=== PATIENT | female | born 1995 | race Hispanic/Latino ===

== ENCOUNTER 2017-08-13 23:56 | Emergency (ER) | payer OTHER ==
[2017-08-14 00:03] VITALS: BP 124/68; TEMP 98; O2SAT 100
[2017-08-14] MEDS ORDERED: DiphenhydrAMINE 50 mg/ml Inj IV STA (00:31)
--- NOTE | 2017-08-14 00:35 | ED PDOC ---
HPI: Allergic Reaction Time Seen by Provider: 08/14/17 00:17 Chief Complaint (Nursing): Allergic Reaction Chief Complaint (Provider): allergic reaction History Per: Patient History/Exam Limitations: no limitations Onset/Duration Of Symptoms: Hrs (3) Current Symptoms Are (Timing): Still Present Possible Cause: Food (plant-based burger) Additional Complaint(s): 21 y/o female presents for evaluation of allergic reaction x 3 hours. Patient states she was eating a plant-based burger for the first time, and while eating she felt itching to her tongue so stopped eating. Patient states she then developed diffuse hives all over body and swelling to lips. Denies difficulty speaking/swallowing, chest pain, shortness of breath, palpitations, abdominal pain. Past Medical History Reviewed: Historical Data, Nursing Documentation, Vital Signs Vital Signs: Last Vital Signs Temp 98.0 F 08/14/17 00:01 Pulse 130 H 08/14/17 00:01 Resp 16 08/14/17 00:01 BP 124/68 08/14/17 00:01 Pulse Ox 100 08/14/17 00:01 - Medical History PMH: No Chronic Diseases - Surgical History Surgical History: No Surg Hx - Family History Family History: States: No Known Family Hx - Home Medications Home Medications: Ambulatory Orders Medication Instructions Recorded Cetirizine HCl [Zyrtec] 10 mg PO DAILY #5 capsule 08/14/17 Famotidine [Pepcid] 20 mg PO BID #8 tab 08/14/17 Prednisone 50 mg PO DAILY #4 tablet 08/14/17 - Allergies Allergies/Adverse Reactions: Allergies Allergy/AdvReac Type Severity Reaction Status Date / Time fruit Allergy ITCHING Uncoded 08/14/17 00:01 Review of Systems ROS Statement: Except As Marked, All Systems Reviewed And Found Negative Skin: Positive for: Rash Physical Exam - Reviewed Nursing Documentation Reviewed: Yes Vital Signs Reviewed: Yes - Physical Exam Appears: Positive for: Well, Non-toxic, No Acute Distress Head Exam: Positive for: ATRAUMATIC, NORMAL INSPECTION, NORMOCEPHALIC Skin: Positive for: Rash (diffuse hives) Eye Exam: Positive for: Normal appearance ENT: Positive for: Normal ENT Inspection, Other (mild perioral edema. airway patent) Cardiovascular/Chest: Positive for: Regular Rate, Rhythm Respiratory: Positive for: Normal Breath Sounds Gastrointestinal/Abdominal: Positive for: Normal Exam Extremity: Positive for: Normal ROM Neurologic/Psych: Positive for: Alert, Oriented - ECG O2 Sat by Pulse Oximetry: 100 - Progress ED Course And Treament: IV solumedrol, IV benadryl, IV pepcid On re-eval, rash improved. Patient states she is feeling better. Patient educated on findings, discharged with rx zyrtec, Pepcid, Prednisone Advised follow up PMD 2-3 days. Return precautions given Disposition - Clinical Impression Clinical Impression: Allergic reaction - Patient ED Disposition Is Patient to be Admitted: No Counseled Patient/Family Regarding: Diagnosis, Need For Followup, Rx Given - Disposition Disposition: Routine/Home Disposition Time: 02:11 Condition: IMPROVED Prescriptions: Cetirizine HCl [Zyrtec] 10 mg PO DAILY #5 capsule Famotidine [Pepcid] 20 mg PO BID #8 tab Prednisone 50 mg PO DAILY #4 tablet Instructions: Food Allergy Forms: [employer] ([place])
[2017-08-14] MEDS ORDERED: DiphenhydrAMINE 50 mg/ml Inj ONE (00:42)
[2017-08-14 02:31] VITALS: PULSE 72; RESP 18
== END 2017-08-14 02:31 | disposition home or self-care (01) ==
LOC: H.ER 23:56
DX: T78.40XA Allergy, unspecified, initial encounter (principal)
CPT/HCPCS: 81025; 96374; 96375; 99283; J1200; J2930